=== PATIENT | female | born 1990 | race African-American/Black ===

== ENCOUNTER 2023-02-24 16:49 | Emergency (ER) | payer SELFPAY ==
[~2023-02-24] VITALS: Ht 152.4 cm; Wt 59.0 kg
[~2023-02-24 16:49] MED LIST: HYDR-4001 PO
[2023-02-24] MEDS ORDERED: KETOROLAC 30MG/ML VIAL IM ONE (19:30)
[2023-02-24 20:06] VITALS: BP 145/68
== END 2023-02-24 20:00 | disposition home or self-care (01) ==
LOC: ER 16:49
DX: M79.662 Pain in left lower leg (principal); Z88.0 Allergy status to penicillin
CPT/HCPCS: 99281